=== PATIENT | male | born 1985 | race Caucasian/White ===

== ENCOUNTER 2017-12-03 18:17 | Emergency (ER) | payer SELFPAY ==
[2017-12-03 18:25] VITALS: TEMP 98.1
--- NOTE | 2017-12-03 20:11 | EDPHY ---
H & P Time Seen by Provider: 12/03/17 19:40 HPI/ROS: CHIEF COMPLAINT: Possible hernia HISTORY OF PRESENT ILLNESS: This healthy 32 y/o male presents with concern for a possible hernia. About 1.5 weeks ago, he noted a small bump in his inguinal area. Four days ago, he noted the lump had increased size and "bulged" when he sits and reduces when he lies supine. This causes occasional pain, but is more uncomfortable because of the bulging sensation. He denies any abdominal pain or difficulty with urination. Works in a garden moving heavy objects, but denies any particularly heavy lifting or other recent abnormal activities. He took Ativan 1 mg orally prior to arrival because of anxiety. No fever, vomiting, diarrhea, blood in his stool , or other associated symptoms. REVIEW OF SYSTEMS: A 10 point review of systems was performed and is negative with the exception of the elements mentioned in the history of present illness. Past Medical/Surgical History: Denies Social History: Single. Lives in [place]. Current tobacco use. Smoking Status: Current every day smoker Physical Exam: General Appearance: Alert, pleasant Eyes: Normal inspection ENT, Mouth: Normal inspection Neck: Normal inspection Chest: Normal respiratory rate Cardiovascular: Regular rhythm and rate Abdomen: Soft, nontender Genitourinary: Mild bulge in right inguinal area with tenderness on palpation Neurological: A&O, nonfocal exam Skin: Warm and dry Extremities: Normal inspection Psychiatric: Anxious Constitutional: Initial Vital Signs Temperature (C) 36.7 C 12/03/17 18:22 Heart Rate 84 12/03/17 18:22 Respiratory Rate 16 12/03/17 18:22 Blood Pressure 116/72 12/03/17 18:22 O2 Sat (%) 98 12/03/17 18:22 O2 Delivery Mode Room Air Allergies/Adverse Reactions: No Known Allergies Allergy (Unverified 12/03/17 18:21) Home Medications: Medication Instructions Recorded LORazepam 12/03/17 Medical Decision Making ED Course/Re-evaluation: 32 y/o male presents with an inguinal hernia. No evidence of incarceration. Plan to d/c home in good condition with referral to general surgery. Follow up and return precautions discussed. The patient is comfortable with this plan. Departure - Departure Disposition: Home, Routine, Self-Care Clinical Impression: Inguinal hernia, right Condition: Good Instructions: Inguinal Hernia (ED) Additional Instructions: 1. Follow up with Dr. Prince, general surgeon on Wednesday morning. 2. Avoid heavy lifting, straining for bowel movements, or other activities that increase pressure in your abdominal region. 3. Return to the emergency department for increased pain or if you develop fever , nausea, vomiting, blood in your bowel movements, dizziness, or other worsening of condition. Referrals: Gema Prince MD [Medical Doctor] - As per Instructions Report Scribed for: Gilda Eason Report Scribed by: Denisa Pardo Date of Report: 12/03/17 Time of Report: 20:10 Physician Review and Approval Statement: 12/03/17 20:10 Portions of this note were transcribed by a biomedical field service engineer. I personally performed a history, physical exam, medical decision making, and confirmed accuracy of information the transcribed note.
[2017-12-03 20:40] VITALS: BP 122/72; PULSE 54; RESP 18; O2SAT 97
== END 2017-12-03 20:40 | disposition home or self-care (01) ==
DX: K40.90 Unilateral inguinal hernia, without obstruction or gangrene, not specified as recurrent (principal); F17.200 Nicotine dependence, unspecified, uncomplicated